=== PATIENT | female | born 1990 | race Caucasian/White ===

== ENCOUNTER 2021-12-02 18:14 | Emergency (ER) | payer OTHER, SELFPAY | END 2021-12-02 19:45 | disposition home or self-care (01) | LOC: CSHERS 18:14 | DX: R13.10 Dysphagia, unspecified (principal); J39.2 Other diseases of pharynx; T39.8X5A Adverse effect of other nonopioid analgesics and antipyretics, not elsewhere classified, initial encounter | CPT/HCPCS: 99283 ==

== ENCOUNTER 2022-08-11 14:21 | Emergency (ER) | payer SELFPAY, OTHER ==
[2022-08-11 15:14] LABS: Blood, Urine 250 (Negative); Clarity Cloudy (Clear); Glucose, Urine (Dipstick) Normal (Negative); Ketone, Urine Negative (Negative); Leukocyte Unable to Interpret (Negative); Specific Gravity, Urine 1.025 (1.005-1.030)
[2022-08-11 15:15] LABS: Nitrite Unable to Interpret (Negative)
[2022-08-11 15:16] LABS: Bilirubin Unable to Interpret (Negative); Protein, Urine (Dipstick) Unable to Interpret mg/dl (Neg-Trace); Urobilinogen UNABLE TO INTERPRET mg/dL (Less than 2)
[2022-08-11 15:18] LABS: Pregnancy Test - Urine (BHCG) Negative (Negative); Pregu Control Background? CLEAR/WHITE (CLR/WHITE); Pregu Control Bar Appear? YES (CONTROL BAR); Specific Gravity 1.025 (1.002-1.036)
[2022-08-11 15:21] LABS: RBC/HPF 21-50 HPF (0-3); WBC/HPF Greater than 50 HPF (0-3)
[2022-08-11 15:22] LABS: Squamous Epithelial 0-3 HPF (0-3)
[2022-08-11 15:23] LABS: Bacteria/HPF 3+ HPF (None Seen)
[2022-08-11] MEDS ORDERED: Acetaminophen 500 MG TAB ONE (16:29)
[2022-08-11] MEDS ORDERED: diphenhydrAMINE 25 MG CAP ONE (16:30)
[2022-08-11] MEDS ORDERED: Metoclopramide HCl 10 MG TAB ONE (16:30)
== END 2022-08-11 17:31 | disposition home or self-care (01) ==
LOC: CSHERS 14:21
DX: N39.0 Urinary tract infection, site not specified (principal); R51.9 Headache, unspecified
CPT/HCPCS: 81003; 81015; 81025; 99284

== ENCOUNTER 2022-12-20 02:13 | Emergency (ER) | payer OTHER, SELFPAY ==
[2022-12-20] MEDS ORDERED: Ondansetron PF 4 MG/2 ML Vial ONE (02:50)
[2022-12-20] MEDS ORDERED: Ketorolac Tromethamine 30 MG/ML VIAL ONE (02:50)
[2022-12-20 02:54] LABS: Bilirubin Neg (Negative); Blood, Urine 150 (Negative); Clarity Slightly Cloudy (Clear); Glucose, Urine (Dipstick) Normal (Negative); Ketone, Urine Negative (Negative); Leukocyte 100 (Negative); Nitrite Positive (Negative); Protein, Urine (Dipstick) 15 mg/dl (Neg-Trace); Specific Gravity, Urine 1.025 (1.005-1.030); Urobilinogen Normal mg/dL (Less than 2)
[2022-12-20 02:56] LABS: #Eosinphils 0.1 10x3/uL (0.0-0.5); #Monocytes 0.8 10x3/uL (0.0-1.1); #Neutrophils 5.2 10x3/uL (1.5-8.4); %Basophils 0.3 % (0.0-2.0); %Eosinophils 1.2 % (0.0-6.0); %Lymphocytes 30.9 % (18.0-47.0); %Monocytes 8.8 % (0.0-10.0); %Neutrophils 58.5 % (40.0-75.0); Hemoglobin 13.5 g/dL (12.0-15.5); Mean Corpuscular HGB CONC 32.4 g/dL (32.0-36.0); Mean Corpuscular Hemoglobin 29.2 pg (27.0-33.0); Mean Corpuscular Volume 90.3 fl (81.6-98.3); Mean Platelet Volume 11.5 fl (7.4-10.4); Platelet Count 305 10x3/uL (150-450); Red Blood Cell (RBC) Count 4.62 10x6/uL (3.90-5.03); White Blood Cell (WBC) Count 8.9 10x3/uL (3.5-10.5)
[2022-12-20 03:00] LABS: BHCG - Serum Negative (NEGATIVE); Pregs Control Background? CLEAR/WHITE (CLR/WHITE); Pregs Control Bar Appear? YES (CONTROL BAR)
[2022-12-20 03:10] LABS: ALT (SGPT) 14 U/L (8-55); AST (SGOT) 16 U/L (5-34); Albumin 4.4 g/dL (3.5-5.0); Alkaline Phosphatase 63 U/L (40-110); Anion Gap 13 mmol/L (10-20); BUN (Urea Nitrogen) 16 mg/dL (7.0-18.7); Bilirubin, Total 0.5 mg/dL (0.2-1.2); Calc. Creatinine Clearance 0 mL/min (70-130); Calcium 9.3 mg/dL (7.8-10.44); Carbon Dioxide 23 mmol/L (22-29); Chloride 108 mmol/L (98-107); Estimated GFR 83; Glucose 117 mg/dL (70-105); Lipase 22 U/L (8-78); Potassium 3.2 mmol/L (3.5-5.1); Protein, Total 7.4 g/dL (6.0-8.3); Sodium 141 mmol/L (136-145); WBC/HPF Greater Than 50 HPF (0-3)
[2022-12-20 03:11] LABS: Bacteria/HPF 3+ HPF (None Seen); Mucous/LPF 1+ LPF (<2+); Squamous Epithelial 0-3 HPF (0-3)
[2022-12-20] MEDS ORDERED: cefTRIAXone\\ROCEPHIN 1 GM VIAL ONE (03:28)
[2022-12-20] MEDS ORDERED: Mag-Al Plus 1200 MG/1200 MG/120 MG/30 ML UDCUP ONE (04:08)
[2022-12-20] MEDS ORDERED: Lidocaine Viscous Sol 2% 15 ml UD Cup ONE (04:08)
== END 2022-12-20 05:19 | disposition home or self-care (01) ==
LOC: CSHERS 02:13
DX: N10 Acute pyelonephritis (principal)
CPT/HCPCS: 74176; 80053; 81003; 81015; 83690; 84703; 85025; 96361; 96365; 96375; J0696; J1885; J2405

== ENCOUNTER 2024-07-09 00:45 | Day surgery (SDC) | payer OTHER, SELFPAY ==
[2024-07-09 01:30] VITALS: BMI 35.7
[2024-07-09] MEDS ORDERED: hydrALAZINE 20 MG/ML VIAL SLOW IVP PRN (02:40)
[2024-07-09] MEDS: Acetaminophen 500 MG TAB PO SCH (02:46)
== END 2024-07-09 05:40 | disposition home health service, planned readmission (86) ==
LOC: CSHLD/OP 00:45
PROVIDERS: ATTEND Family Medicine
DX: O47.03 False labor before 37 completed weeks of gestation, third trimester (principal); Z3A.32 32 weeks gestation of pregnancy

== ENCOUNTER 2024-07-18 16:38 | Day surgery (SDC) | payer OTHER ==
[2024-07-18 17:12] VITALS: BMI 35.2
[2024-07-18] MEDS ORDERED: hydrALAZINE 20 MG/ML VIAL SLOW IVP PRN (17:58)
== END 2024-07-18 20:50 | disposition home or self-care (01) ==
LOC: CSHLD/OP 16:38
PROVIDERS: ATTEND Family Medicine
DX: O99.891 Other specified diseases and conditions complicating pregnancy (principal); R10.2 Pelvic and perineal pain; O24.419 Gestational diabetes mellitus in pregnancy, unspecified control; O99.343 Other mental disorders complicating pregnancy, third trimester; F32.9 Major depressive disorder, single episode, unspecified; F41.9 Anxiety disorder, unspecified; O23.43 Unspecified infection of urinary tract in pregnancy, third trimester; O34.211 Maternal care for low transverse scar from previous cesarean delivery; O23.593 Infection of other part of genital tract in pregnancy, third trimester; N89.8 Other specified noninflammatory disorders of vagina; B37.31 Acute candidiasis of vulva and vagina; B96.89 Other specified bacterial agents as the cause of diseases classified elsewhere; Z3A.33 33 weeks gestation of pregnancy; Z79.84 Long term (current) use of oral hypoglycemic drugs; Z79.899 Other long term (current) drug therapy
CPT/HCPCS: 76819; 87480; 87510; 87660; 99283

== ENCOUNTER 2024-07-30 17:35 | Inpatient (IN) | payer OTHER ==
[2024-07-30 18:05] VITALS: BMI 35.7
[2024-07-30] MEDS ORDERED: Promethazine HCl 25 MG/ML VIAL IM PRN (18:46)
[2024-07-30] MEDS ORDERED: hydrALAZINE 20 MG/ML VIAL SLOW IVP PRN (18:46)
[2024-07-30] MEDS ORDERED: Docusate 100 MG CAP PO PRN (18:46)
[2024-07-30] MEDS ORDERED: Ondansetron PF 4 MG/2 ML Vial IVP PRN (18:46)
[2024-07-30 19:32] LABS: Bilirubin Neg (Negative); Blood, Urine Negative (Negative); Glucose, Urine (Dipstick) Normal (Negative); Ketone, Urine 150 mg/dL (Negative); Leukocyte 500 (Negative); Nitrite Negative (Negative); Protein, Urine (Dipstick) 15 mg/dl (Neg-Trace); Specific Gravity, Urine 1.015 (1.005-1.030); Urobilinogen Normal mg/dL (Less than 2)
[2024-07-30 19:35] LABS: Clarity Hazy (Clear)
[2024-07-30 19:42] LABS: Bacteria/HPF 1+ HPF (None Seen); Mucous/LPF Few LPF (<2+); RBC/HPF 0-3 HPF (0-3)
[2024-07-30 19:51] LABS: Anion Gap 17 mmol/L (10-20); BUN (Urea Nitrogen) 8 mg/dL (7.0-18.7); Calc. Creatinine Clearance 168 mL/min (70-130); Calcium 9.1 mg/dL (7.8-10.44); Carbon Dioxide 20 mmol/L (22-29); Chloride 106 mmol/L (98-107); Estimated GFR 110; Glucose 69 mg/dL (70-105); Potassium 3.8 mmol/L (3.5-5.1); Sodium 139 mmol/L (136-145)
[2024-07-30] MEDS ORDERED: Simethicone Chewable 80 MG TAB PO PRN (20:12)
[2024-07-30] MEDS: Acetaminophen 500 MG TAB PO SCH (20:51)
[2024-07-30] MEDS: Potassium Chloride 20 MEQ in Lactated Ringer's 1,000 ML IV SCH ×2 (21:47→22:09)
[2024-07-31] MEDS: Metamucil PACK PO PRN (05:24)
[2024-07-31 05:58] LABS: Phosphorus 3.2 mg/dL (2.3-4.7)
[2024-07-31 06:01] LABS: Anion Gap 15 mmol/L (10-20); BUN (Urea Nitrogen) 8 mg/dL (7.0-18.7); Calc. Creatinine Clearance 178 mL/min (70-130); Calcium 8.5 mg/dL (7.8-10.44); Carbon Dioxide 19 mmol/L (22-29); Chloride 106 mmol/L (98-107); Estimated GFR 118; Glucose 71 mg/dL (70-105); Magnesium 1.6 mg/dL (1.6-2.6); Potassium 3.9 mmol/L (3.5-5.1); Sodium 136 mmol/L (136-145)
[2024-07-31] MEDS: Lactated Ringer's 1,000 ML IV SCH (07:38)
[2024-07-31 09:57] LABS: Influenza A by NAA Not Detected (NotDetected); Influenza B by NAA Not Detected (NotDetected); SARS-CoV-2 NAA Rapid Test Not Detected (NotDetected)
[2024-07-31] MEDS: FLUoxetine HCl 20 MG CAP PO SCH (10:55)
[2024-07-31] MEDS: Clotrimazole 2% 3 Day Vag Cr 22.2 GM TUBE VAG SCH (13:48)
[2024-07-31] MEDS: Azithromycin 250 MG TAB PO SCH (16:44)
[2024-07-31] MEDS: Loperamide HCl 2 MG CAP PO SCH (18:43)
[2024-07-31] MEDS: Potassium Chloride 20 MEQ in Lactated Ringer's 1,000 ML IV SCH (20:38)
[2024-07-31] MEDS: Acetaminophen 325 MG TAB PO PRN (20:39)
[2024-07-31] MEDS ORDERED: Clotrimazole 2% 3 Day Vag Cr 22.2 GM TUBE VAG SCH (21:00)
[2024-08-01 04:56] LABS: Anion Gap 14 mmol/L (10-20); BUN (Urea Nitrogen) 6 mg/dL (7.0-18.7); Calc. Creatinine Clearance 170 mL/min (70-130); Calcium 8.2 mg/dL (7.8-10.44); Carbon Dioxide 18 mmol/L (22-29); Chloride 111 mmol/L (98-107); Estimated GFR 112; Glucose 89 mg/dL (70-105); Magnesium 1.6 mg/dL (1.6-2.6); Phosphorus 3.7 mg/dL (2.3-4.7); Potassium 3.6 mmol/L (3.5-5.1); Sodium 139 mmol/L (136-145)
[2024-08-01 05:58] LABS: Campy jejuni + coli by PCR Negative (Negative); STEC Shiga Toxin 1+2 Negative (Negative); Salmonella spp. by PCR Negative (Negative); Shigella spp + EIEC by PCR Negative (Negative)
[2024-08-01] MEDS: FLUoxetine HCl 20 MG CAP PO SCH (07:54)
[2024-08-01] MEDS: metFORMIN 500 MG TAB PO SCH (07:54)
[2024-08-01] MEDS: Clotrimazole 2% 3 Day Vag Cr 22.2 GM TUBE VAG SCH (07:55)
[2024-08-01] MEDS: Prenatal Vitamin 1 TAB PO SCH (07:55)
[2024-08-01 16:11] VITALS: BP 108/69; TEMP 97.6
== END 2024-08-01 16:55 | disposition home health service (06) | DRG 833 ==
LOC: CSHLD/OP 17:35 → CSHLD 19:40 → CSHANTE 21:52 → OBSVTOIN 07-31 15:36
PROVIDERS: ADMIT Family Medicine; ATTEND Family Medicine
DX: O98.513 Other viral diseases complicating pregnancy, third trimester (principal); Z3A.35 35 weeks gestation of pregnancy; A08.4 Viral intestinal infection, unspecified; O99.283 Endocrine, nutritional and metabolic diseases complicating pregnancy, third trimester; E86.0 Dehydration; O99.343 Other mental disorders complicating pregnancy, third trimester; F32.A Depression, unspecified; O24.415 Gestational diabetes mellitus in pregnancy, controlled by oral hypoglycemic drugs; Z90.89 Acquired absence of other organs; Z79.84 Long term (current) use of oral hypoglycemic drugs; Z79.899 Other long term (current) drug therapy; O99.891 Other specified diseases and conditions complicating pregnancy; N89.8 Other specified noninflammatory disorders of vagina
CPT/HCPCS: 36415; 36416; 76816; 76819; 80048; 81001; 83735; 84100; 87328; 87329; 87505; J3480; J7120

== ENCOUNTER 2024-08-02 10:13 | Day surgery (SDC) | payer OTHER | END 2024-08-02 11:54 | disposition home or self-care (01) | LOC: CSHLD/OP 10:13 | PROVIDERS: ATTEND Family Medicine | DX: O24.415 Gestational diabetes mellitus in pregnancy, controlled by oral hypoglycemic drugs (principal); O99.343 Other mental disorders complicating pregnancy, third trimester; F32.9 Major depressive disorder, single episode, unspecified; Z3A.35 35 weeks gestation of pregnancy; Z87.59 Personal history of other complications of pregnancy, childbirth and the puerperium; Z79.2 Long term (current) use of antibiotics; Z79.899 Other long term (current) drug therapy | CPT/HCPCS: 76819; 99282 ==

== ENCOUNTER 2024-08-18 12:00 | Inpatient (IN) | payer OTHER ==
[2024-08-22 13:27] LABS: Hematocrit 34.4 % (34.9-44.5); Hemoglobin 11.6 g/dL (12.0-15.5); Platelet Count 140 10x3/uL (150-450)
[2024-08-22 13:54] LABS: Syphilis Antibody Nonreactive (Nonreactive); Syphilis Antibody Index 0.03 S/CO (<1.00 Non-Reactive)
[2024-08-22 13:55] LABS: HBsAg Index 0.13 S/CO (0-0.99); Hep B Surf Ag Non-Reactive S/CO (NonReactive)
[2024-08-23 10:19] VITALS: BMI 36.2
[2024-08-23] MEDS ORDERED: hydrALAZINE 20 MG/ML VIAL SLOW IVP PRN ×2 (10:40→15:58)
[2024-08-23] MEDS ORDERED: Bicitra 30 ML UDCUP PO PRN (10:40)
[2024-08-23] MEDS ORDERED: Ondansetron PF 4 MG/2 ML Vial IVP PRN ×2 (10:40→13:40)
[2024-08-23] MEDS ORDERED: Promethazine HCl 25 MG/ML VIAL IM PRN ×2 (10:40→15:58)
[2024-08-23] MEDS ORDERED: Carboprost 250 MCG/ML AMP IM PRN (10:41)
[2024-08-23] MEDS ORDERED: Tranexamic Acid 1,000 MG/10 ML VIAL IVP PRN (10:41)
[2024-08-23] MEDS ORDERED: Acetaminophen 500 MG TAB PO PRN (10:41)
[2024-08-23] MEDS ORDERED: Misoprostol 200 MCG TAB PR PRN ×2 (10:41→15:58)
[2024-08-23] MEDS ORDERED: Diphenoxylate HCl/Atropine Tablet PO PRN (10:41)
[2024-08-23] MEDS ORDERED: Lactated Ringer's 1,000 ML IV SCH (10:45)
[2024-08-23] MEDS ORDERED: Oxytocin 30 units/NS 500 ML 500 ML IV SCH ×2 (10:45→15:58)
[2024-08-23] MEDS ORDERED: CEFAZOLIN 2 GM in Sodium Chloride 0.9% 100 ML IVPB SCH ×2 (10:45→14:00)
[2024-08-23] MEDS: Famotidine/PF 20 mg/2ml Vial SLOW IVP PRN (12:01)
[2024-08-23] MEDS: Methylergonovine 0.2 MG/ML VIAL IM PRN (12:56)
[2024-08-23] MEDS ORDERED: Morphine 4 MG/ML VIAL SLOW IVP PRN (13:40)
[2024-08-23] MEDS ORDERED: Naloxone HCl 0.4 mg/ml Vial IVP PRN ×2 (13:40)
[2024-08-23] MEDS ORDERED: fentaNYL 50 mcg/mL 1 mL Vial SLOW IVP PRN (13:40)
[2024-08-23] MEDS ORDERED: Naloxone HCl 0.4 mg/ml Vial IV PRN (13:40)
[2024-08-23] MEDS: Ondansetron PF 4 MG/2 ML Vial IVP PRN ×2 (13:42→20:07)
[2024-08-23] MEDS: diphenhydrAMINE 50 MG/ML VIAL IVP PRN (13:43)
[2024-08-23] MEDS: Promethazine HCl 25 MG/ML VIAL IM PRN (13:44)
[2024-08-23] MEDS ORDERED: Ketorolac Tromethamine 30 MG (1 mL) VIAL IVP SCH (13:45)
[2024-08-23] MEDS ORDERED: Communication Order-Pharmacy FS SCH (13:45)
[2024-08-23] MEDS: Meperidine HCl/PF 25 MG (1 mL) VIAL SLOW IVP PRN (15:00)
[2024-08-23] MEDS ORDERED: Lanolin Ointment 7 GM TUBE TOP PRN (15:58)
[2024-08-23] MEDS ORDERED: Methylergonovine 0.2 MG/ML VIAL IM PRN (15:58)
[2024-08-23] MEDS ORDERED: Acetaminophen 325 MG TAB PO PRN (15:58)
[2024-08-23] MEDS: Morphine PF 10 MG/10 ML VIAL ONE (17:21)
[2024-08-23] MEDS: Ketorolac Tromethamine 30 MG (1 mL) VIAL ONE (17:22)
[2024-08-23] MEDS: Oxytocin 10 UNITS/ML VIAL ONE (17:22)
[2024-08-23] MEDS: PHENYLEPHRINE-NS 100 MCG/ML 10 ML SYRINGE ONE (17:22)
[2024-08-23] MEDS: Methylergonovine 0.2 MG/ML VIAL ONE (17:22)
[2024-08-23] MEDS: Ondansetron PF 4 MG/2 ML Vial ONE (17:22)
[2024-08-23] MEDS: Tranexamic Acid 1,000 MG/10 ML VIAL ONE (17:22)
[2024-08-23] MEDS: Erythromycin Base 0.5% Oint 1 GM TUBE ONE (17:23)
[2024-08-23] MEDS: diphenhydrAMINE 50 MG/ML VIAL ONE (17:23)
[2024-08-23] MEDS: Phytonadione Neonatal 1 MG/0.5 ML AMP ONE (17:23)
[2024-08-23] MEDS: Boostrix 0.5 ML (Tdap) VIAL (>/=7 yrs of age) IM ONE (17:23)
[2024-08-23] MEDS: Docusate 100 MG CAP PO SCH (22:15)
[2024-08-23] MEDS: Ferrous Sulfate 325 MG TAB PO SCH (22:16)
[2024-08-24] MEDS ORDERED: Diphenoxylate HCl/Atropine Tablet PO PRN (01:45)
[2024-08-24] MEDS: HYDROcodone/Acetaminophen 5/325 mg Tablet PO PRN (04:35)
[2024-08-24 05:32] LABS: Hematocrit 34.1 % (34.9-44.5); Hemoglobin 11.1 g/dL (12.0-15.5); Mean Corpuscular HGB CONC 32.6 g/dL (32.0-36.0); Mean Corpuscular Hemoglobin 29.6 pg (27.0-33.0); Mean Corpuscular Volume 90.9 fL (81.6-98.3); RBC Distribution Width 15.2 % (11.5-14.5); Red Blood Cell (RBC) Count 3.75 10x6/uL (3.90-5.03); White Blood Cell (WBC) Count 9.4 10x3/uL (3.5-10.5)
[2024-08-24 05:33] LABS: Mean Platelet Volume 13.6 fL (7.4-10.4); Platelet Count 113 10x3/uL (150-450)
[2024-08-24] MEDS: Ketorolac Tromethamine 30 MG (1 mL) VIAL IVP PRN (06:54)
[2024-08-24] MEDS: FLUoxetine HCl 20 MG CAP PO SCH (08:35)
[2024-08-24] MEDS: Prenatal Vitamin 1 TAB PO SCH (08:35)
[2024-08-24] MEDS: Polyethylene Glycol 3350 17 GM Packet PO SCH ×2 (08:36→22:32)
[2024-08-24] MEDS: diphenhydrAMINE 25 MG CAP PO PRN (12:16)
[2024-08-24] MEDS: Moisturizing Cream (Eucerin) 113 GM JAR TOP PRN (15:40)
[2024-08-24] MEDS: Ibuprofen 800 MG TAB PO SCH (22:28)
[2024-08-25] MEDS: HYDROcodone/Acetaminophen 5/325 mg Tablet PO PRN (04:59)
[2024-08-25] MEDS: Simethicone Chewable 80 MG TAB PO PRN (14:06)
[2024-08-26 07:52] VITALS: BP 124/83; TEMP 98.3
[2024-08-26 08:13] LABS: #Basophils 0.03 10x3/uL (0.0-0.2); #Eosinophils 0.14 10x3/uL (0.0-0.5); #Monocytes 0.74 10x3/uL (0.0-1.1); #Neutrophils 6.28 10x3/uL (1.5-8.4); %Basophils 0.3 % (0.0-2.0); %Eosinophils 1.6 % (0.0-6.0); %Lymphocytes 16.8 % (18.0-47.0); %Monocytes 8.4 % (0.0-10.0); %Neutrophils 71.8 % (40.0-75.0); Hemoglobin 10.2 g/dL (12.0-15.5); Mean Corpuscular HGB CONC 31.9 g/dL (32.0-36.0); Mean Corpuscular Hemoglobin 29.3 pg (27.0-33.0); Mean Platelet Volume 12.7 fL (7.4-10.4); Platelet Count 161 10x3/uL (150-450); RBC Distribution Width 15.5 % (11.5-14.5); Red Blood Cell (RBC) Count 3.48 10x6/uL (3.90-5.03); White Blood Cell (WBC) Count 8.8 10x3/uL (3.5-10.5)
== END 2024-08-26 17:55 | disposition home or self-care (01) | DRG 788 ==
LOC: CSHLD 08-23 09:59 → CSHPED 08-23 15:45
PROVIDERS: ADMIT Family Medicine; ATTEND Family Medicine
PROC: 10D00Z1 Extraction of Products of Conception, Low, Open Approach (ICD-10-PCS; principal; 2024-08-23)
DX: O34.211 Maternal care for low transverse scar from previous cesarean delivery (principal); Z3A.38 38 weeks gestation of pregnancy; Z37.0 Single live birth; O24.429 Gestational diabetes mellitus in childbirth, unspecified control; O99.214 Obesity complicating childbirth; O36.63X0 Maternal care for excessive fetal growth, third trimester, not applicable or unspecified; E66.812 Obesity, class 2; O99.344 Other mental disorders complicating childbirth; F32.A Depression, unspecified
CPT/HCPCS: 36415; 51702; 82951; 85014; 85018; 85025; 85027; 85049; 86780; 86850; 86900; 86901; 87340; J1200; J1885; J2175; J2210; J2274; J2405; J2550; J2590; J3490

== ENCOUNTER 2024-08-29 15:44 | Emergency (ER) | payer OTHER | END 2024-08-29 18:55 | disposition home or self-care (01) | LOC: CSHERS 15:44 | DX: O87.0 Superficial thrombophlebitis in the puerperium (principal); I80.01 Phlebitis and thrombophlebitis of superficial vessels of right lower extremity; Z79.899 Other long term (current) drug therapy ==